=== PATIENT | female | born 1995 | race Caucasian/White ===

== ENCOUNTER → 2020-12-12 | Day surgery (SDC) | payer MEDICARE, OTHER ==
[~2020-12-12] MED LIST: DOCUSATE SODIU100 MG PO; HYDROCODONE-AC1 EAC1 PO; NAPROXEN250 MG PO; XYZAL PO
[2020-12-12 07:38] LABS: HEMOGLOBIN 13.8 gm/dl (12.3-15.3); RED BLOOD COUNT 4.49 M/UL (4.00-5.10); WHITE BLOOD COUNT 7.3 K/UL (4.5-11.0)
== END | disposition home or self-care (01) ==
LOC: OR 06:52
PROVIDERS: Obstetrics & Gynecology
DX: O02.1 Missed abortion (principal); G43.909 Migraine, unspecified, not intractable, without status migrainosus; E66.01 Morbid (severe) obesity due to excess calories; Z79.899 Other long term (current) drug therapy; Z20.822 Contact with and (suspected) exposure to COVID-19
CPT/HCPCS: 36415; 81001; 85025; J1100; J1885; J2250; J2405; J2704; J2795; J3010; J7120; U0002